=== PATIENT | male | born 1970 | race African-American/Black ===

== ENCOUNTER 2024-03-04 23:14 | Inpatient (IN) | payer BC, SELFPAY ==
[2024-03-04 21:14] VITALS: BP 190/110
[2024-03-04 21:28] LABS: % Basophils 0.9 % (0-2); % Eosinophils 4.5 % (0-6); % Immature Granulocytes 0.2 % (0-0.5); % Lymphocytes 29.4 % (20.5-51.1); % Monocytes 11.7 % (1.7-9.3); % Neutrophils 53.3 % (42.2-75.2); Absolute Basophils 0.1 10^3/uL (0-0.2); Absolute Eosinophils 0.3 10^3/uL (0-0.7); Absolute Lymphocytes 1.9 10^3/uL (1.2-3.4); Absolute Monocytes 0.8 10^3/uL (0.1-0.6); Absolute Neutrophils 3.4 10^3/uL (1.4-6.5); Hematocrit 39.5 % (39.0-52.0); Hemoglobin 13.7 g/dL (13.0-18.0); Mean Corp Hgb Conc. 34.7 g/dL (33.0-37.0); Mean Corpuscular Hgb 28.2 pg (27.0-31.0); Mean Corpuscular Volume 81.3 fL (80.0-94.0); Mean Platelet Volume 11.3 fL (7.4-10.4); Nucleated Red Blood Cells % 0 % (-); Platelet Count 198 10^3/uL (130-400); Red Blood Cell Count 4.86 10^6/uL (4.70-6.10); Red Cell Dist. Width 13.1 % (11.5-14.5); White Blood Cell Count 6.4 10^3/uL (4.8-10.8)
[2024-03-04 21:57] LABS: Troponin I 0.082 ng/ml
[2024-03-04 22:19] LABS: ALT (SGPT) 18 U/L (0-50); AST (SGOT) 27 U/L (17-59); Albumin 4.4 g/dl (3.5-5.0); Alkaline Phosphatase 81 U/L (38-126); Blood Urea Nitrogen 20 mg/dl (9-20); Calcium 9.6 mg/dl (8.4-10.2); Carbon Dioxide 27 mmol/L (22-30); Chloride 104 mmol/L (98-107); Glucose 102 mg/dl (70-99); Potassium 4.5 mmol/L (3.5-5.1); Sodium 138 mmol/L (135-145); Total Bilirubin 0.8 mg/dl (0.2-1.3); Total Protein 7.1 g/dl (6.3-8.2); eGFR > 60.00
--- NOTE | 2024-03-04 22:35 | ED.GENMED ---
History of Present Illness
General
Chief Complaint: Chest Pain
Source: patient and spouse
Exam Limitations: none
Time Seen by Provider: 03/04/24 22:02
Nursing documentation reviewed up to this point in time: agreed with
History of Present Illness
History of Present Illness:
Patient with history of hypertension on lisinopril and atenolol, presents to ED secondary to intermittent chest pain over the past 4 days. Chest pain described as pressure in the middle of chest, nonradiating, associated with shortness of breath.
Tonight, after dinner, patient experienced similar chest pain, but this time with radiating discomfort on the left side of his neck as well as the heaviness sensation in his left arm. At the time of exam in the ED, radiating discomfort in neck and
arm have resolved. However, patient is still experiencing 'little discomfort' in the chest. Denies previous similar symptoms. Denies recent travel or surgery. Denies back pain. Denies leg pain or swelling. Patient does not smoke, but does
drink alcohol occasionally. Denies family history of heart disease, although his parents does experience 'angina'.
Review of Systems
Review of Systems
Allergies reviewed?: Yes
All Other Systems: ROS reviewed and negative except as documented in HPI and ROS
Constitutional: Reports no symptoms
EENT: Reports no symptoms
Respiratory: Reports trouble breathing
Cardiac: Reports chest pain
ABD/GI: Reports no symptoms
: Reports no symptoms
Musculoskeletal: Reports no symptoms
Skin: Reports no symptoms
Neurological: Reports no symptoms
Phy Exam
Physical Exam
Physical Exam:
Physical Exam
General: no apparent distress, not acutely ill. afebrile
Head: nc/at. eomi
Neck: supple. no meningeal signs
Heart: s1/s2 regular rate and rhythm, no murmur. equal radial pulses.
Lungs: no acute respiratory distress. clear bilaterally
Abdomen: normal bowel sounds. not tender.
Neuro: alert and oriented. no focal neurological deficits
Skin: no rash
Psychiatric: well kept. interactive and cooperative
Extremities: no edema. no calf tenderness.
Scores
Heart Score for Chest Pain Patients
STEMI patient?: No
History: Moderately Suspicious
ECG: Normal
Age: >45 - <65 years
Risk Factors: 1 or 2 Risk Factors
Troponin: >1 - <3 x Normal Limit
Heart Score for Chest Pain Patients: 4
Heart Score Risk: 20.3% MACE over next 6 weeks
Course
Orders/Labs/Results
Orders:
Orders
03/04/24 Dinner
Cholesterol Lowering
At Your Request: Full Participation
Cholesterol Lowering: Sodium, 2 Gram
03/04/24 21:13
Electrocardiogram (*1) Urgent
Reason for Study: Chest Pain
Cardiac Monitoring- Treatment ONCE
EKG- Treatment ONCE
IV Insert/Care/Rem.- Treatment PRN
O2 Therapy [RESP] Urgent
Titrate/Wean O2 to maintain O2 sat greater than (%): 90
Special Instructions: Maintain sats >/=90%
Pulse Ox/spot Check [RESP] Urgent
Quantity: 1
Special Instructions: ON ROOM AIR
03/04/24 21:23
Complete Blood Count/With Diff Urgent
Comprehensive Metabolic Panel Urgent
Troponin I Urgent
03/04/24 22:29
Aspirin Chewable [Low Strength Aspirin] 324 mg PO NOW STA
Nitroglycerin Sublingual [Nitrostat (Sublingual)] 0.4 mg SL NOW STA
03/04/24 22:33
PTT Urgent
Comment: Obtain baseline before beginning heparin infusion if not already collected
03/04/24 22:34
Heparin 4,000 units IV NOW STA
Nursing to Place Non Medication Order As Directed
Physician Order: PTT 6 hours after initial start of Heparin infusion
Above order entered?: Yes
03/04/24 22:38
Heparin 44404 Units/250 ml 25,000 units in 250 ml .ROUTE .STK-MED
03/04/24 22:44
Urine Drug Abuse Screen Routine
03/04/24 22:45
Heparin 01511 Units/250 ml 25,000 units in 250 ml IV PER PROTOCOL
Weight to be used for heparin protocol in kilograms (kg):: 124.9
Protocol:: Cardiac Tx/Acute Coronary
PTT Goal Range to be used:: PTT 73 to 111 seconds
Order type:: Initial
INITIAL Infusion Dose (UNITS/KG/hr) & then follow protocol:: 12 units/kg/hr
Infusion Dose in UNITS/hr & then follow protocol (UNITS/hr):: 1,000
INFUSION RATE in mL/hr & then follow protocol (mL/hr):: 10
PTT less than or equal to 64 seconds:: Increase rate by 200 units/hr (+ 2 mL/hr)
PTT 64.1 to 72.9 seconds:: Increase rate by 100 units/hr (+ 1 mL/hr)
PTT 73 to 111 seconds:: Target Range. No change in rate.
PTT 111.1 to 130.9 seconds:: Decrease rate by 100 units/hr (- 1 mL/hr)
PTT 131 to 199.9 seconds:: HOLD for 1 hr. Then decrease rate by 200 units/hr (- 2 mL/hr)
PTT greater than or equal to 200 seconds:: HOLD for 2 hrs & Notify Provider. Then decrease by 200 units/hr (-
2 mL/hr)
Lab follow-up:: Each change, PTT q6h until 2 consecutive are therapeutic. Then PTT
daily.
03/04/24 22:57
Acetaminophen [Tylenol] 1,000 mg PO NOW STA
03/04/24 23:04
Admit/Transfer Patient As Directed
Co-Sign Provider:
Level of Care: Inpatient admission
Assign to:: IVU
Physician / Group: maura pandey
Diagnosis: Nstemi, htn emergency
Reason for Hospitalization: Nstemi, htn emergency
Expected length of stay greater than two midnights?: Yes
ELOS- Estimated Length of Stay in days: 4
I certify the patient meets the requirements for IP care: Yes
03/04/24 23:05
Code Status As Directed
Resuscitation Status: Full Code
03/04/24 23:07
PRN Pain Medication Management As Directed
May give lesser potent ordered pain med per pt: Yes
preference::
Protocol:: Medication orders for pain may be administered in a
manner that supports deferring to patient preference
when the pt is:
- Requesting an ordered lesser potent pain medication.
Least to most potent pain medications are defined
as: acetaminophen < NSAID < tramadol < opioids
(morphine, oxycodone, hydromorphone).
- Requesting a lesser dose of the same medication IF
ORDERED.
- Requesting a less intrusive route of administration
if both routes are prescribed by the provider (PO <
IV).
03/04/24 23:57
CARDIOLOGY CONSULT Routine
Consulting Provider: Silvia Prescott
Was physician already notified: Yes
Reason for consult: nstemi
VTE Contraindication Routine
VTE Mechanical Device Contraindication: Medical Contraindication
Pharmocologic Contraindication: Medical Contraindication
Comment: pt on iv heparin
Heparin Protocol- PTT Orders As Directed
PTT per Heparin protocol: -Obtain CBC and baseline PTT - if not already collected.
-Obtain PTT 6 hours from start of infusion. Then, every 6 hours until 2 consecutive
PTT's are therapeutic. Then, PTT Daily.
-With each rate change, obtain PTT every 6 hours until 2 consecutive PTT's are
therapeutic. Then, PTT Daily.
Activity As Directed
Activity Level: As Tolerated
Intake/ Output As Directed
Frequency: Per unit guidelines
Notify MD As Directed
Notify physician if: PTT is greater than or equal to 200.
Vital Signs As Directed
Frequency: Per unit guidelines
Ot Eval And Treat Routine
Pt Eval And Treat Routine
Activity Level: As Tolerated
03/05/24 03:00
EKG [Electrocardiogram (*1)] Urgent
Reason for Study: Chest Pain
03/05/24 03:48
Cardiovascular Evaluation IN AM
Complete Blood Count/With Diff IN AM
Comprehensive Metabolic Panel IN AM
PTT Urgent
Troponin I Q6H
03/05/24 05:00
Acetaminophen [Tylenol] 650 mg PO Q6HPRN PRN
03/05/24 06:00
Echo 2D MMode Color/Doppler IN AM
Reason for Study: cp
NPO
Allow oral meds: Yes
Allow clear liquids: No
NPO with Ice Chips: No
03/05/24 09:00
Troponin I Q6H
03/05/24 22:00
Psyllium [Metamucil, Konsyl] 1 packet PO HS
Valsartan [Diovan] 320 mg PO HS
03/06/24 06:00
Complete Blood Count/No Diff Q2D
Comment: notify provider: Platelet count < 130,000 or decrease by 50% from baseline
Complete Blood Count/With Diff IN AM
Comprehensive Metabolic Panel IN AM
03/07/24 06:00
Complete Blood Count/With Diff IN AM
Comprehensive Metabolic Panel IN AM
03/08/24 06:00
Complete Blood Count/No Diff Q2D
Comment: notify provider: Platelet count < 130,000 or decrease by 50% from baseline
03/10/24 06:00
Complete Blood Count/No Diff Q2D
Comment: notify provider: Platelet count < 130,000 or decrease by 50% from baseline
03/12/24 06:00
Complete Blood Count/No Diff Q2D
Comment: notify provider: Platelet count < 130,000 or decrease by 50% from baseline
03/14/24 06:00
Complete Blood Count/No Diff Q2D
Comment: notify provider: Platelet count < 130,000 or decrease by 50% from baseline
03/16/24 06:00
Complete Blood Count/No Diff Q2D
Comment: notify provider: Platelet count < 130,000 or decrease by 50% from baseline
03/18/24 06:00
Complete Blood Count/No Diff Q2D
Comment: notify provider: Platelet count < 130,000 or decrease by 50% from baseline
03/20/24 06:00
Complete Blood Count/No Diff Q2D
Comment: notify provider: Platelet count < 130,000 or decrease by 50% from baseline
Abnormal Lab Results
03/04/24
21:23
MPV 11.3 H fL
(7.4-10.4)
Absolute Monos (auto) 0.8 H 10^3/uL
(0.1-0.6)
Monocytes % 11.7 H %
(1.7-9.3)
Glucose 102 H mg/dl
(70-99)
Troponin I 0.082 H* ng/ml
03/04/24 21:23
03/04/24 21:23
Vital Signs
Initial and Last Documented VS:
Initial Vital Signs
Temp Pulse Resp BP Pulse Ox
98.3 F 52 18 190/110 100
03/04/24 21:14 03/04/24 21:14 03/04/24 21:14 03/04/24 21:14 03/04/24 21:14
Last Documented Vital Signs
Temp Pulse Resp BP Pulse Ox
97.7 F 46 16 161/100 97
03/05/24 03:39 03/05/24 04:00 03/05/24 03:39 03/05/24 03:40 03/05/24 03:39
MDM/Problems Addressed
MDM/Problems Addressed:
History and exam along with initial troponin concerning for acute coronary syndrome.
Discussed with on-call modeling agent, Dr. Prescott. Recommends admission to hospitalist service, with patient to be kept n.p.o. for potential cardiac catheterization in a.m. Patient will be started on aspirin, nitroglycerin, and heparin protocol.
*EKG
Interpreted by ED Provider?: Yes
EKG Intrepretation Date: 03/04/24
Heart Rate: 49
Rate: bradycardiac
Rhythm: sinus
[place]: normal axis
*Critical Care Note
Total Time (30-74mins, 75-104mins- exclusive of procedures): Not Applicable
ED Attending Note
-
Portions of this chart may have been created with voice recognition software.� Occasional wrong word or��sound alike� substitutions may have occurred due to the inherent limitations of voice recognition software.
Discharge Plan
Departure
Patient Disposition: Admit
Date of Disposition: 03/04/24
Time of Disposition: 22:39
Admit to: Telemetry
Presentation/result/management discussed w/ accepting MD/DO: Hospitalist
Discharge Problem:
Non-ST elevation [place] (NSTEMI)
Interventions
Interventions:
*Risk Screen - Suicide Last Done: 03/04/24 21:43
*General Assessment Last Done: 03/04/24 21:14
*Neglect/Abuse Screening Last Done: 03/04/24 21:14
ED- Fall Risk Assessment Last Done: 03/04/24 21:14
*ED COVID-19 Vaccine History Last Done: 03/04/24 21:14
*Nursing Disposition Last Done: 03/04/24 23:49
ED- Cardiac Assessment Last Done: 03/04/24 23:08
Discharge Date and Time
Discharge Date/Time: 03/04/24 23:50
[2024-03-04] MEDS: HEPARIN 4000 UNITS IV (22:43)
--- NOTE | 2024-03-04 22:43 | HPS.HSE ---
Addendum entered and electronically signed by Lalit Yeung DO 03/05/24 00:04:
Patient seen and examined independently. Agree with findings and plan as set forth by TINO Perrin.
Patient is a 53y M with PMH significant for hypertension who presents to ED complaining of chest pain. Patient states that he started with chest discomfort on evening into Sunday. Patient states that symptoms have been intermittent
since that time. He describes a pressure as if something were stuck in his lower chest. No associated symptoms of dyspnea, nausea, diaphoresis, etc. Today he noted some numbness / tingling in the L arm which prompted him to present to the ED for
further evaluation.
BP initially noted to be quite elevated and patient reports history of similar presentation several years ago. He was found to be markedly hypertensive at that time as he had been off of his BP meds for about 6 months.
Patient states that he stopped his Procardia about 2 months ago due to swelling in the ankles. he has remained compliant with his valsartan.
Ass:
Hypertensive Emergency
Chest Pain / NSTEMI
Bradycardia
Plan:
Admit for further evaluation and treatment.
IV heparin protocol.
BP improved s/p nitroglycerin in the ED.
Would begin IV NTG gtt if chest discomfort returns or BP increases.
Cardiology evaluation in the AM.
+/- ischemic evaluation.
Continue to follow serial troponin.
Original Note:
Family Physician
-
Family Physician:
Chief Complaint
-
Chest pain
History of Present Illness
53-year-old male complaining of chest pressure midsternal over the past 4 days. He was seen at urgent care earlier today due to having chest pain with some shortness of breath radiating to his left arm. He was referred to the ER for evaluation.
He complains of chest pain currently is 08/15. In the ER he was noted to have elevated troponin along with hypertension. He denies headache with blood pressure of 187/108 although did get a headache post nitroglycerin sublingual at bedside. He
recently stopped nifedipine in addition to his current drug regimen due to swelling in his legs. He reports he only drinks decaffeinated coffee he denies any antihistamines, Afrin, cocaine, fever, chills, sore throat, cough, abdominal pain, nausea,
vomiting, diarrhea, urinary symptoms. He has past medical history of hypertension, peripheral edema
Medical History
Past Medical History
Past Medical History: Reports Other
Additional Past Medical History:
Hypertension
Peripheral edema
Past Surgical History: Reports None
Social History
Tobacco: Non-smoker
Alcohol: Occasional (1 neck drink approximately 2 weeks)
Drug: None
Personal:
Living: With Family
Employment: Employed
Family History
Family History: Other (Father hypertension, DM 2 mother unknown)
Allergies / Home Medications
Allergies reflects when Allergies were last updated in [facility].
Home Medications with original date entered in [facility]
Allergy/Medication List:
Allergies
Allergy/AdvReac Type Severity Reaction Status Date / Time
No Known Allergies Allergy Unverified 03/04/24 21:12
Home Medications
Fiber Laxative 1 dose PO HS 03/04/24
atenolol 50 mg tablet 50 mg PO HS 03/04/24
valsartan 320 mg tablet 320 mg PO HS 03/04/24
Review of Systems
-
History Source: Patient and Family ( at bedside)
A 12 point ROS was completed and negative except as noted: Yes
Constitutional: Denies Fever or Chills
EENT: Denies Sore Throat or Runny Nose
Respiratory: Denies Cough or Trouble Breathing
Cardiac: Reports Chest Pain (Midsternal to left arm); Denies Diaphoresis, Palpitations or Syncope
Abdomen/GI: Denies Abdominal Pain, Nausea, Vomiting, Diarrhea, Constipated, Bloody Stools or Black Stools
: Denies Dysuria, Frequency, Flank Pain, Incontinence, Difficulty Voiding or Urgency
Musculoskeletal: Reports Edema (Trace peripheral bilateral); Denies Joint Pain
Skin: Reports Other (Brown pigmentation to bilateral lower legs); Denies Itching or Rash
Neurological: Denies Dizzy or Headache
Endocrine: Reports No Symptoms
Hematologic/Lymphatic: Reports No Symptoms
Psych: Reports Calm
Physical Exam
Vital Signs
Vital Signs
Temp Pulse Resp BP Pulse Ox
98.3 F 49 15 190/110 98
03/04/24 21:14 03/04/24 22:30 03/04/24 22:30 03/04/24 21:14 03/04/24 22:32
Physical Exam
General: Comfortable and Conversant; No Fever or Chills
HEENT: NormoCephalic, Anicteric, Moist mucous membranes, PERRLA, [place] Conjunctivae and No Ptosis
Respiratory: Clear; No Wheezes, Rales or Rhonchi
Cardiac: S1/S2, Bradycardia (HR 45) and Peripheral Edema (Trace peripheral bilateral); No Murmur, Rub or Gallop
Breast: Deferred by me
GI: Soft, Non Tender, Non Distended, Normal Bowel Sounds and No Hepatosplenomegaly
Rectal: Deferred by Provider
Genito-urinary: Deferred by me
Musculoskeletal: Edema, Left Lower Extremity (Trace peripheral bilateral), Edema, Right Lower Extremity (Trace peripheral bilateral) and Other (Brown pigmentation bilateral lower legs )
Skin: Warm and Dry; No Rash or Jaundice
Neuro: AO x 3, No Motor Deficits, Nonfocal/grossly intact, Cranial Nerves Intact and No Sensory Deficits; No Slurred Speech, Facial Droop or Tremors
Psych: Calm
Laboratory Results
-
03/04/24 21:23
03/04/24 21:23
Laboratory Results
Total Bilirubin 0.8 mg/dl (0.2-1.3) 03/04/24 21:23
AST 27 U/L (17-59) 03/04/24 21:23
ALT 18 U/L (0-50) 03/04/24 21:23
Alkaline Phosphatase 81 U/L (38-126) 03/04/24 21:23
Troponin I 0.082 ng/ml H* 03/04/24 21:23
Data Reviewed
-
Lab Data: Labs Reviewed by me
Impression/Plan
-
Impression/plan:
Admit to IVU
#NSTEMI
Troponin 0.082, will trend
-N.p.o. after midnight for cath in a.m.
-Consult cardiology
-Aspirin 324 mg now will give 81 mg IM
-IV heparin drip
-Check UDS
-Nitro sublingual given in the ER with CP relief
#Hypertensive emergency/ hx htn emergency per
BP 190/110 >165/98 post nitro sl
-Patient took valsartan 320 mg at bedtime at 8:30 PM 03/04/2024 and a Tylenol 50 mg at bedtime
- cont valsartan 320 mg hs
Will give nitroglycerin sublingual-patient did experience headache post nitro
-Tylenol given in ER for headache
#Bradycardia
HR 45
-Patient took atenolol 50 mg at 8:30 PM
-Monitor consider lower dosage of atenolol given bradycardia
#constipation hx
cont fiber laxative or equivalent
DVT prophylaxis
IV heparin drip
Full code
[2024-03-04] MEDS: HEPARIN 25000 UNITS/250 ML IV (22:44)
[2024-03-04] MEDS: LOW STRENGTH ASPIRIN 324 MG PO (22:46)
[2024-03-04] MEDS: NITROSTAT (SUBLINGUAL) 0.4 MG SL (22:46)
[2024-03-04 22:53] LABS: APTT 29.9 Sec (23.4-35.0)
[2024-03-04 22:54] VITALS: BP 187/108
[2024-03-04] MEDS: TYLENOL 1000 MG PO (23:03)
[2024-03-04 23:11] VITALS: BP 165/98
[2024-03-05] VITALS (15 sets, daily range): BP systolic 161–210; BP diastolic 93–116; BMI 33.3
[2024-03-05 04:03] LABS: % Basophils 0.6 % (0-2); % Eosinophils 4.5 % (0-6); % Immature Granulocytes 0.2 % (0-0.5); % Lymphocytes 35.7 % (20.5-51.1); Absolute Eosinophils 0.2 10^3/uL (0-0.7); Absolute Lymphocytes 1.9 10^3/uL (1.2-3.4); Absolute Monocytes 0.4 10^3/uL (0.1-0.6); Absolute Neutrophils 2.7 10^3/uL (1.4-6.5); Hematocrit 41.8 % (39.0-52.0); Hemoglobin 13.9 g/dL (13.0-18.0); Mean Corp Hgb Conc. 33.3 g/dL (33.0-37.0); Mean Corpuscular Hgb 28.1 pg (27.0-31.0); Mean Corpuscular Volume 84.4 fL (80.0-94.0); Mean Platelet Volume 11.8 fL (7.4-10.4); Nucleated Red Blood Cells % 0 % (-); Platelet Count 174 10^3/uL (130-400); Red Blood Cell Count 4.95 10^6/uL (4.70-6.10); Red Cell Dist. Width 12.9 % (11.5-14.5); White Blood Cell Count 5.4 10^3/uL (4.8-10.8)
[2024-03-05 04:11] LABS: APTT 32.2 Sec (23.4-35.0)
[2024-03-05 04:26] LABS: ALT (SGPT) 19 U/L (0-50); AST (SGOT) 24 U/L (17-59); Albumin 4.2 g/dl (3.5-5.0); Alkaline Phosphatase 88 U/L (38-126); Blood Urea Nitrogen 17 mg/dl (9-20); Calcium 9.3 mg/dl (8.4-10.2); Carbon Dioxide 26 mmol/L (22-30); Chloride 106 mmol/L (98-107); Glucose 99 mg/dl (70-99); HDL Cholesterol 39 mg/dl; LDL Cholesterol, Calculated 103 mg/dl; Sodium 138 mmol/L (135-145); Total Bilirubin 0.9 mg/dl (0.2-1.3); Total Cholesterol 195 mg/dl (50-199); Total Protein 6.9 g/dl (6.3-8.2); Triglyceride 268 mg/dl (10-149); Very Low Density Lipoprotein 53 mg/dl (0-30); eGFR > 60.00
[2024-03-05 04:36] LABS: Troponin I 0.322 ng/ml
[2024-03-05 07:17] LABS: Amphetamines Negative (Negative); Barbiturates Negative (Negative); Benzodiazepines Negative (Negative); Buprenorphine Negative (Negative); Cocaine Negative (Negative); Marijuana Negative (Negative); Methadone Negative (Negative); Methamphetamines Negative (Negative); Opiates Negative (Negative); Phencyclidine Negative (Negative); Tricyclic Antidepressants Negative (Negative)
--- NOTE | 2024-03-05 08:53 | CON.CAR ---
Addendum entered and electronically signed by Geronimo Gray DO 03/05/24 16:18:
Attestation: I have seen and examined the patient. I can confirm Ms. Givens findings and I agree with her assessment and plan as documented.
53-year-old gentleman with multiple coronary artery disease risk factors including hypertension presenting with typical angina beginning several days ago. Initial troponin is positive and trending up. He is currently chest pain-free after
initiation of heparin.
Exam is benign.
Impression:
Acute coronary syndrome
Hypertension
Plan:
Plan for urgent cardiac catheterization for non-ST elevation myocardial infarction.
Risks and benefits explained to patient. Consent is signed and on the chart.
Further instructions to follow.
Original Note:
Consultation
Consultation Request
Date/Time Consultation Requested: 03/04/24 5300
Date/Time Consultation Performed: 03/05/24 08
Requesting Provider: Hoa Braun NP
Performing Provider: Marisol JIMÉNEZ for Dr. Gray
Reason for Consultation: ACS
Medical History
-
Chief Complaint: chest discomfort
History of Present Illness:
53 y/o male with hypertension who is here for evaluation of intermittent chest discomfort since . Last night, he had it after dinner at rest and went down his left arm. In the ER, he was given nitro, which helped the discomfort. He was given
full dose aspirin and started on a heparin drip. He is CP free at the time of my assessment.
Past Medical History
Past Medical History: HTN
Social History
Tobacco: Non-Smoker
Alcohol: Occasional
Personal:
Living: With Family
Family History
Family History: Diabetes (dad), Hypertension (dad ) and Other (thinks grandfather had PR, but lived to be 86)
Allergies / Home Medications
Allergy/AdvReac Type Severity Reaction Status Date / Time
No Known Allergies Allergy Unverified 03/04/24 21:12
�Medication �Instructions �Recorded �Confirmed �Type
Fiber Laxative 1 dose PO HS Constipation 03/04/24 03/04/24 History
atenolol 50 mg tablet 50 mg PO HS Blood Pressure 03/04/24 03/04/24 History
valsartan 320 mg tablet 320 mg PO HS Blood Pressure 03/04/24 03/04/24 History
Review of Systems
-
History Source: Patient
All other systems: Negative unless noted
Cardiac: Chest Pain
Physical Exam
Vital Signs
Temp Pulse Resp BP Pulse Ox
98.2 F 49 16 167/103 98
03/05/24 07:30 03/05/24 07:30 03/05/24 07:30 03/05/24 07:24 03/05/24 07:59
Lab Results
03/05/24 03:48
03/05/24 03:48
Troponin I 0.322 ng/ml H* D 03/05/24 03:48
Physical Exam
General: Well Developed, Well Nourished and No Apparent Distress
HEENT: Normocephalic and Anicteric
Respiratory: Clear and Non Labored Respirations
Cardiac: Regular Rhythm (SB)
Musculoskeletal: Edema (trace BLE edema)
Skin: Warm and Dry
Neuro: AO x 3
Psych: Calm
Impression / Plan
-
NSTEMI:
-trop 0.322- trend to peak
-received full dose ASA, continue ASA 81 mg PO daily
-initiate statin. Continue BB, but adjust to coreg.
-on heparin gtt- to continue, which requires intensive monitoring
-this diagnosis is threat to life; however, patient hemodynamically stable and CP free at the time of my assessment
-plan for cardiac catheterization today
Bradycardia:
-chronic, runs in 50's normally per patient
-monitor tele with adjustment in BB as above
HTN:
-elevated
-continue ARB, adjust BB to Coreg. Can add another agent if needed such as HCTZ. Of note, nifedipine made his legs swell, so will avoid CCB.
Dyslipidemia:
-LDL 103, triglycerides 268
-statin initiated
Data Reviewed
-
EKG: Tracing Personally Visualized and interpreted (SR with minimal voltage criteria for LVH)
Medical Tests (Nuc Med, Echo etc): Other (echo ordered)
Labs: Labs Reviewed by me
[2024-03-05] MEDS: COREG 6.25 MG PO ×2 (08:55→20:30)
[2024-03-05] MEDS: LOW STRENGTH ASPIRIN 81 MG PO (08:55)
--- NOTE | 2024-03-05 10:38 | W.PN.HOSP.TC ---
Today's Communication/Plan
-
see outlined plan
Assessment / Plan
Assessment / Plan
Assessment:
NSTEMI (Diagnosis is threat to life)
- trend trops to peak
- continue ASA/Statin/BB
- continue heparin drip; requires intensive monitoring of PTT levels
- cardiac cath today
Chronic sinus bradycardia
- monitor tele
Hx of Essential HTN with urgency
- continue ARB/BB
- previously CCB caused swelling
HLD - statin
Hx of constipation
- laxatives prn
DVT ppx: IV Heparin
Code: Full
Anticipated Discharge: > 48 hours
Subjective/Interval History
-
Date of Service: March 05, 2024
no chest pain
for cath today
Objective Data
-
Labs:
Laboratory Results
03/04/24 03/05/24 03/05/24
22:33 03:48 10:30
WBC 5.4
Hgb 13.9
Hct 41.8
Plt Count 174
APTT 29.9 32.2 Pending
Sodium 138
Potassium 4.0
Chloride 106
Carbon Dioxide 26
BUN 17
Creatinine 0.8
Glucose 99
Calcium 9.3
Total Bilirubin 0.9
AST 24
ALT 19
Alkaline Phosphatase 88
Vital Signs:
Vital Signs
Temp Pulse Resp BP Pulse Ox
98.2 F 49 16 167/103 98
03/05/24 07:30 03/05/24 07:30 03/05/24 07:30 03/05/24 07:24 03/05/24 07:59
Physical Exam
-
General: No Apparent Distress
HEENT: Normocephalic and Atraumatic
Respiratory: Clear to Auscultation; Negative Wheezes or Rales
Cardiac: Regular Rhythm and S1/S2
GI: Soft and Nontender
Genito-urinary: No Costovertebral Tender
Neuro: AO x 3
Hematologic / Lymphatic: No Lymphadenopathy
Psych: Calm
Data Reviewed
-
Total Time Spent with Patient (in minutes): 52
Labs: Labs Reviewed by me
[2024-03-05 11:09] LABS: APTT 41.4 Sec (23.4-35.0)
--- NOTE | 2024-03-05 12:09 | CM ---
Chart reviewed. Patient is independent of ADLS, lives with his in a [address], [address], 0 DME. Patient is waiting for a cardiac cath. Plan is for the patient to return home. CM to follow
[2024-03-05 13:39] LABS: ACT-LR - POC 393 Seconds (116-155)
--- NOTE | 2024-03-05 14:11 | CM ---
Pricing on Brilinta is $50 a month through the patient's [facility], ID# [id number]. The patient qualifies for the $5 co pay card. I will place it in the red discharge folder
[2024-03-05] MEDS: NSS 1000 IV (14:29)
--- NOTE | 2024-03-05 15:58 | ITS.CL.ANGIO ---
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
Angioplasty
Procedure Report:
CARDIAC CATHETERIZATION REPORT
Date of Procedure: 03/05/2024
Referring: Palak Prescott M.D.
INDICATION: Non-ST elevation myocardial infarction.
PROCEDURE:
1. Left heart catheterization.
2. Coronary angiography.
3. Successful PCI of the large first diagonal
ACCESS:
6 [place] right radial artery.
6 [place] right common femoral artery using a modified Seldinger technique with a micropuncture kit under ultrasound guidance.
CATHETERS:
1. 5 [place] JR4.
2. 5 [place]ese JL 3.5.
3. 6 [place] EBU 4.0 guiding catheter.
HEMODYNAMIC DATA
Weight (kg): 120.7
AO (s/d/x, mmHg): 171/102/130
LV (s/x mmHg): 176/19 (A wave to 35)
LEFT VENTRICULOGRAPHY: Not performed.
CORONARY ANGIOGRAPHY
Dominance: Right.
Left Main: Short, normal diameter vessel. There is no coronary artery disease.
LAD: Large size vessel giving rise to 2 large diagonals. The first diagonal is acutely occluded in its proximal margin. There is late, retrograde filling from the second diagonal.
Ramus: Congenitally absent.
Circumflex: Relatively small AV groove vessel giving rise to several small obtuse marginals.
RCA: Large size, dominant vessel with a large posterolateral arcade. There is no coronary artery disease.
INTERVENTION(S)
1. Successful PCI of the 100% proximal D1 occlusion (Medtronic Caden [place] 3.0 x 30 TJ, postdilated with a 3.0 NC balloon) with reduction in stenosis to 0%, restoring SILVER-3 flow.
Narrative:
The decision was made to proceed with percutaneous coronary intervention. The diagnostic catheter was removed over a wire and a 6Fr EBU 4.0 guiding catheter was advanced to the aortic root and seated in the left main coronary artery. Additional
heparin was given and a Power Turn Flex wire was advanced distal first diagonal. The proximal D1 100% lesion was predilated with a 2.0 x 12 semi-compliant balloon to 12 jacki. The semi-compliant balloon was removed and a Medtronic [place] 3.0 x
30 drug-eluting stent was advanced. The stent was deployed at 12 atmospheres. The stent balloon was removed. A 3.0 x 20 noncompliant balloon was advanced into the stent and the stent was postdilated to 14 atmospheres. Angiography was performed in
orthogonal views, confirming good stent expansion and an excellent angiographic result. The coronary wire was withdrawn and the guide was disengaged from the artery. The catheter was removed over a standard J-wire.
Closure Device: Vascular band.
Radiation (mGy): 1225.31
DAP (cm2.Gy): 103.85
Fluoroscopy time (minutes): 9.5
Sedation time (minutes): 60
CONCLUSIONS
1. Right dominant circulation with a large posterolateral arcade and an acute occlusion of the large first diagonal, status post successful PCI (Medtronic Caden [place] 3.0 x 30 TJ, postdilated with a 3.0 NC balloon) with reduction in stenosis to
0%, restoring SILVER-3 flow.
2. Moderately elevated filling pressures (LVEDP = 19 mmHg at 120.7 kg) with evidence of significant diastolic dysfunction (A wave to 35 mmHg).
3. Severely tortuous right innominate artery requiring femoral access.
RECOMMENDATIONS:
1. Expectant management after cardiac catheterization via right radial and right common femoral approach.
2. Limited weight bearing on the right wrist for one week.
3. Dual antiplatelet therapy with aspirin and ticagrelor for at least 12 months, followed by aspirin indefinitely.
4. Start diuresis tomorrow given elevated filling pressures and diastolic dysfunction.
5. Guideline directed medical therapy as hemodynamics will tolerate.
6. Aggressive secondary prevention with high-dose, high potency statin. Goal LDL <55.
7. Referral to cardiac rehab.
Copy to: Palak Prescott M.D., Phoebe Riggins M.D.
Geronimo Gray DO, FACC, FACP
[2024-03-05] MEDS: TYLENOL 650 MG PO (17:04)
[2024-03-05] MEDS: LIPITOR 40 MG PO (17:05)
[2024-03-05] MEDS: APRESOLINE 5 MG IV (17:05)
[2024-03-05] MEDS: ALDACTONE 25 MG PO (17:05)
[2024-03-05 17:28] LABS: Troponin I 0.826 ng/ml
--- NOTE | 2024-03-05 17:49 | PTCARENOTE ---
Pt had cardiac cath via right radial artery and right femoral artery. Radial band removed eventually after some initial oozing, right femoral site with dry and intact dressing. No bleeding or hematoma at either site. Pt with elevated BP's post
procedure, Marisol Pope NP notified, aldactone and hydralazine IV added. Pt also disappointed at having to stay in the hospital. telemetry shows sinus merari. Troponin level still trending up slightly. Pt given information about his new medications
and health issues.
[2024-03-05] MEDS: BRILINTA 90 MG PO (20:30)
[2024-03-05] MEDS: DIOVAN 320 MG PO (20:31)
[2024-03-05] MEDS: METAMUCIL, KONSYL 1 PACKET PO (20:31)
[2024-03-06] VITALS (11 sets, daily range): BP systolic 132–192; BP diastolic 90–111; BMI 33.0
[2024-03-06 04:23] LABS: % Basophils 0.6 % (0-2); % Eosinophils 2.2 % (0-6); % Immature Granulocytes 0.3 % (0-0.5); % Lymphocytes 21.4 % (20.5-51.1); % Monocytes 9.7 % (1.7-9.3); % Neutrophils 65.8 % (42.2-75.2); Absolute Eosinophils 0.2 10^3/uL (0-0.7); Absolute Lymphocytes 1.6 10^3/uL (1.2-3.4); Absolute Monocytes 0.7 10^3/uL (0.1-0.6); Absolute Neutrophils 4.8 10^3/uL (1.4-6.5); Hematocrit 40.8 % (39.0-52.0); Hemoglobin 13.9 g/dL (13.0-18.0); Mean Corp Hgb Conc. 34.1 g/dL (33.0-37.0); Mean Corpuscular Hgb 27.6 pg (27.0-31.0); Mean Corpuscular Volume 81.1 fL (80.0-94.0); Mean Platelet Volume 11.4 fL (7.4-10.4); Nucleated Red Blood Cells % 0 % (-); Platelet Count 184 10^3/uL (130-400); Red Blood Cell Count 5.03 10^6/uL (4.70-6.10); Red Cell Dist. Width 13.2 % (11.5-14.5); White Blood Cell Count 7.3 10^3/uL (4.8-10.8)
[2024-03-06 05:19] LABS: ALT (SGPT) 17 U/L (0-50); AST (SGOT) 24 U/L (17-59); Albumin 4.1 g/dl (3.5-5.0); Alkaline Phosphatase 92 U/L (38-126); Blood Urea Nitrogen 15 mg/dl (9-20); Calcium 9.2 mg/dl (8.4-10.2); Carbon Dioxide 24 mmol/L (22-30); Chloride 107 mmol/L (98-107); Estimated Creatinine Clearance > 125 ml/min; Glucose 100 mg/dl (70-99); Potassium 4.1 mmol/L (3.5-5.1); Sodium 138 mmol/L (135-145); Total Bilirubin 1.1 mg/dl (0.2-1.3); Total Protein 6.9 g/dl (6.3-8.2); eGFR > 60.00
--- NOTE | 2024-03-06 06:03 | PTCARENOTE ---
Assumed care of patient at change of shift. NSR/sinus merari on monitor with HR 50s-70s. Denies chest pain. Right groin cath site dressing dry/intact with no complications noted. Right radial dressing dry intact with ecchymosis. Edema noted in
right hand that was soft and nontender. Radial pulse palpable and cap refill <2sec. PA at bedside to assess patient. KUMAR wrap applied and arm elevated on pillow which relieved swelling. Patient ambulating independently in room without
difficulty. Education provided on activity restrictions and reporting any changes to staff. Call hernandez within reach.
[2024-03-06] MEDS: BRILINTA 90 MG PO (08:16)
[2024-03-06] MEDS: APRESOLINE 5 MG IV (08:16)
[2024-03-06] MEDS: LOW STRENGTH ASPIRIN 81 MG PO (08:16)
[2024-03-06] MEDS: ALDACTONE 25 MG PO (08:16)
[2024-03-06] MEDS: COREG 6.25 MG PO ×2 (08:16→12:04)
--- NOTE | 2024-03-06 08:50 | W.PN.CD ---
Addendum entered and electronically signed by Geronimo Gray DO 03/06/24 15:32:
The patient is doing well and will likely be discharged today.
The patient should not return to work until at least 03/10/2024.
The patient should avoid any sort of heavy lifting. 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
He may engage is routine activities of daily living, but I asked him to hold off on any vigorous exercise until he has started cardiac rehab.
Original Note:
Today's Communication / Plan
-
Increase carvedilol to 12.5 mg BID.
Monitor BP/HR.
Discharge planning.
Impression / Plan
-
Impression/Plan: 53 y/o male with HTN admitted with NSTEMI.
#NSTEMI
-Acute.
-Troponin peaked at 0.826.
-S/P PCI to a large, acutely occluded D1 (Medtronic [place] 3.0 x 30 TJ, post dilated with a 3.0 NCB) with reduction in stenosis to 0%, restoring SILVER III flow.
-DAPT with aspirin + ticagrelor for at least 12 months, followed by aspirin indefinitely.
-Echo shows normal LV function, no regional wall motion abnormalities. LVEF 65-70%.
-Continue carvedilol.
-Atorvastatin started. Goal LDL < 55.
#Bradycardia
-Chronic, stabe. HR typically in the 50's per patient.
-Monitor tele with adjustment in BB as above.
#HTN
-Chronic, elevated.
-Intolerant of CCB.
-Continue valsartan, spironolactone. Monitor Cr/K+.
-Increase carvedilol to 12.5 mg BID.
-Hydralazine 5 mg IV PRN.
#Dyslipidemia
-New diagnosis.
-Total cholesterol = 195, LDL = 103, HDL = 39, Triglycerides = 268.
-Atorvastatin 40 mg daily started.
-Goal LDL < 55.
-Repeat lipid panel in 3 months.
#PPx
-SCD's for DVT/VTE.
-No role for PPI.
#Dispo
-IVU status.
-Full code.
-Discharge planning (late today vs. tomorrow).
Subjective/Interval History:
Weight is down 0.9 kg.
Patient is consistently hypertensive (160's - 189 mmHg).
Atenolol changed to carvedilol.
Spironolactone 25 mg started.
Hydralazine 5 mg IV given x2.
Troponin peaked at 0.826.
DATA:
TTE, 03/05/2024:
CONCLUSIONS
LV ejection fraction is 65-70%. No regional wall motion abnormalities are seen.
Normal right ventricular size and function.
Trileaflet aortic valve with partial fusion of the right and left coronary
cusps (raphe). Grossly normal leaflet excursion. No aortic stenosis. No
aortic regurgitation is seen.
The aortic arch is 4.3 cm.
No prior study available for comparison.
Cardiac Catheterization/PCI, 03/05/2024:
CONCLUSIONS
1. Right dominant circulation with a large posterolateral arcade and an acute occlusion of the large first diagonal, status post successful PCI (Medtronic Caden [place] 3.0 x 30 TJ, postdilated with a 3.0 NC balloon) with reduction in stenosis to
0%, restoring SILVER-3 flow.
2. Moderately elevated filling pressures (LVEDP = 19 mmHg at 120.7 kg) with evidence of significant diastolic dysfunction (A wave to 35 mmHg).
3. Severely tortuous right innominate artery requiring femoral access.
Physical Exam
Vital Signs/Labs
Vital Signs
Temp Pulse Resp BP Pulse Ox
36.5 C 54 20 172/111 99
03/06/24 07:53 03/06/24 08:00 03/06/24 07:53 03/06/24 08:16 03/06/24 08:14
03/04/24 03/05/24 03/06/24
11:59 11:59 11:59
Actual Weight 120.7 kg 119.8 kg
03/06/24 03:41
03/06/24 03:41
APTT Cancelled 03/05/24 17:30
Triglycerides 268 mg/dl (10-149) H 03/05/24 03:48
LDL Cholesterol, Calc 103 mg/dl 03/05/24 03:48
VLDL Cholesterol, Calc 53 mg/dl (0-30) H 03/05/24 03:48
HDL Cholesterol 39 mg/dl 03/05/24 03:48
LAB Results
03/04/24 03/05/24 03/05/24
21:23 03:48 10:41
Troponin I 0.082 H* 0.322 H* D 0.460 H* D
03/05/24 03/06/24
16:44 03:41
Troponin I 0.826 H* D 0.410 H*
Physical Exam
Constitutional: No acute distress and Comfortable
EENT: Anicteric and Moist mucous membranes
Cardiovascular: Rhythm & rate is regular, Pedal edema is absent, JVD pressure is normal, S1S2 is normal and Murmur/rub/gallop absent
Respiratory: Respiratory effort normal, Lungs clear to auscul., Wheeze Absent and Crackles Absent
GI: Soft, Distention absent, Flat, Non tender and Normal bowel sounds
Neuro/Psych: AO x 3
Other: Cath Site (Right radial, right femoral access sites are C/D/I.)
Data Reviewed
-
Date of Service: March 06, 2024
Medical Decision Making: Reviewed Test Results, Independent Historian Assessment and Test Interpretation
EKG: Tracing Personally Visualized and interpreted and Report Reviewed by me
Echo: Tracing Personally Visualized and interpreted and Report Reviewed by me
Medical Tests (PFT, Pathology etc): Image Personally Visualized and interpreted and Report Reviewed by me
Labs: Labs Reviewed by me
[2024-03-06 09:05] LABS: Glycohemoglobin (HgbA1c) 5.2 % (4.0-5.6)
--- NOTE | 2024-03-06 11:50 | W.PN.HOSP.TC ---
Today's Communication/Plan
-
follow afternoon BPs for possible DC if stable
Assessment / Plan
Assessment / Plan
Assessment:
NSTEMI (Diagnosis is threat to life)
- s/p [facility] 03/05: Right dominant circulation with a large posterolateral arcade and an acute occlusion of the large first diagonal, status post successful PCI (Medtronic Caden [place] 3.0 x 30 TJ, postdilated with a 3.0 NC balloon) with reduction in
stenosis to 0%, restoring SILVER-3 flow. Moderately elevated filling pressures (LVEDP = 19 mmHg at 120.7 kg) with evidence of significant diastolic dysfunction (A wave to 35 mmHg). Severely tortuous right innominate artery requiring femoral access.
- continue ASA/Brilinta/Statin/BB/ARB/Aldactone; repeat BMP in 1 week
- if BP stable, dc later today to OP cards f/u
Chronic sinus bradycardia
- asymptomatic, monitor
Hx of Essential HTN with urgency
- continue BB/ARB/Aldactone
- previously CCB caused swelling
HLD - statin
Hx of constipation
- laxatives prn
DVT ppx: low risk, ambulation
Code: Full
Anticipated Discharge: Within 24 hours
Subjective/Interval History
-
Date of Service: March 06, 2024
s/p cath and TJ placed yesterday
no chest pain or SOB
BP high and Coreg dose adjusted
Objective Data
-
Labs:
Laboratory Results
03/06/24
03:41
WBC 7.3
Hgb 13.9
Hct 40.8
Plt Count 184
Sodium 138
Potassium 4.1
Chloride 107
Carbon Dioxide 24
BUN 15
Creatinine 0.8
Glucose 100 H
Calcium 9.2
Total Bilirubin 1.1
AST 24
ALT 17
Alkaline Phosphatase 92
Vital Signs:
Vital Signs
Temp Pulse Resp BP Pulse Ox
98.2 F 54 20 150/103 97
03/06/24 11:18 03/06/24 08:00 03/06/24 11:18 03/06/24 11:40 03/06/24 11:18
I&O
03/05/24 03/06/24 03/07/24
06:59 06:59 06:59
Intake Total 1865 / 1865
Output Total 500 / 500
Balance 1365 / 1365
Physical Exam
-
General: No Apparent Distress
HEENT: Normocephalic and Atraumatic
Respiratory: Negative Wheezes
Cardiac: Regular Rhythm and S1/S2
GI: Soft
Genito-urinary: No Costovertebral Tender
Musculoskeletal: No Edema
Neuro: AO x 3
Hematologic / Lymphatic: No Lymphadenopathy
Psych: Calm
Data Reviewed
-
Total Time Spent with Patient (in minutes): 44
Labs: Labs Reviewed by me
[2024-03-06] MEDS: TYLENOL 650 MG PO (12:05)
--- NOTE | 2024-03-06 12:10 | CM ---
Chart reviewed. Patient is independent of ADLS, lives with his i a 3 STH, 2 [place]OUR[place], 0 DME. I called the patients [facility] and the Brilinta is in stock. Plan is for the patient to return home.
--- NOTE | 2024-03-06 14:14 | W.DS.TRANS ---
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
-
Discharge Instructions:
Discharge Diagnosis/Procedures NSTEMI, Angioplasty and stent to Diagonal artery
on 03/05. Hypertension
Diet Low Cholesterol
Driving Restrictions No driving for 24 hours
Other Services Cardiac Rehab
Instructions:
Stand-Alone Forms: DC Instructions- Cath/EP Lab
Changes to Home Medications: Yes
Discharge Medications:
DC Medications w/original date entered in ticketscript
Fiber Laxative 1 dose PO HS Constipation 03/04/24
aspirin 81 mg chewable tablet 81 mg PO DAILY #100 tabs 03/06/24
atorvastatin 40 mg tablet 40 mg PO QPM #30 tabs 03/06/24
carvedilol 12.5 mg tablet 12.5 mg PO BID #60 tabs 03/06/24
spironolactone 25 mg tablet 25 mg PO DAILY #30 tabs 03/06/24
ticagrelor 90 mg tablet (Brilinta) 90 mg PO BID #60 tabs 03/06/24
valsartan 320 mg tablet 320 mg PO HS Blood Pressure #30 tabs 03/06/24
Home Medication Changes
all new med list for CAD with stent placement
Pending Results: No
Total time spent discharging patient (in min): 42
--- NOTE | 2024-03-06 17:25 | PTCARENOTE ---
Pt walking in halls without problem. Pt seen by Kristin and Isaac. Telemetry and IV device removed. Discharge instructions reviewed with pt and his regarding medications and their possible side effects, wound care, activity guidelines,
reporting cares and concerns and follow up appts. Excellent understanding verbalized. Pt escorted out via wheelchair and discharged to home.
== END 2024-03-06 16:40 | disposition home or self-care (01) | DRG 322 ==
LOC: IVU 23:14
PROVIDERS: Clinical Nurse Specialist Family Health; Emergency Medicine; Nurse Practitioner; ADMITTING PHYSICIAN Hospitalist; ATTENDING PHYSICIAN Internal Medicine; EMERGENCY PHYSICIAN Emergency Medicine; FAMILY PHYSICIAN Family Medicine; OTHER PHYSICIAN Internal Medicine Cardiovascular Disease
PROC: B2111ZZ Fluoroscopy of Multiple Coronary Arteries using Low Osmolar Contrast (ICD-10-PCS; 2024-03-05)
PROC: 4A023N7 Measurement of Cardiac Sampling and Pressure, Left Heart, Percutaneous Approach (ICD-10-PCS; 2024-03-05)
PROC: 027034Z Dilation of Coronary Artery, One Artery with Drug-eluting Intraluminal Device, Percutaneous Approach (ICD-10-PCS; 2024-03-05)
DX: I21.4 Non-ST elevation (NSTEMI) myocardial infarction (principal); I16.1 Hypertensive emergency; I11.9 Hypertensive heart disease without heart failure; R60.0 Localized edema; K59.00 Constipation, unspecified; E78.5 Hyperlipidemia, unspecified; Z83.3 Family history of diabetes mellitus; Z82.49 Family history of ischemic heart disease and other diseases of the circulatory system; Z79.82 Long term (current) use of aspirin
CPT/HCPCS: 80053; 80061; 80306; 83036; 84484; 85025; 85347; 85730; 93005; 93306; 93458; 96374; 96375; 99285; C1725; C1760; C1874; C1887; C1894; C9600; Q9967

== ENCOUNTER 2024-04-04 16:59 | Outpatient (RCR) | payer BC, SELFPAY | END 2024-04-04 23:59 | disposition home or self-care (01) | LOC: CRHB 16:59 | PROVIDERS: ATTENDING PHYSICIAN Internal Medicine Cardiovascular Disease; FAMILY PHYSICIAN Family Medicine | DX: I25.10 Atherosclerotic heart disease of native coronary artery without angina pectoris (principal); Z95.5 Presence of coronary angioplasty implant and graft; I25.2 Old myocardial infarction | CPT/HCPCS: 93797; 93798 ==

== ENCOUNTER 2024-05-05 17:00 | Outpatient (RCR) | payer BC, SELFPAY | END 2024-05-05 23:59 | disposition home or self-care (01) | LOC: CRHB 17:00 | PROVIDERS: ATTENDING PHYSICIAN Internal Medicine Cardiovascular Disease; FAMILY PHYSICIAN Family Medicine | DX: I25.10 Atherosclerotic heart disease of native coronary artery without angina pectoris (principal); Z95.5 Presence of coronary angioplasty implant and graft; I25.2 Old myocardial infarction | CPT/HCPCS: 93797; 93798; G0422; G0423 ==

== ENCOUNTER 2024-05-07 12:26 | Outpatient (RCR) | payer BC, SELFPAY | END 2024-05-07 15:54 | disposition other institution (70) | LOC: CRHB 12:26 | PROVIDERS: ATTENDING PHYSICIAN Internal Medicine Cardiovascular Disease | DX: I25.10 Atherosclerotic heart disease of native coronary artery without angina pectoris (principal); Z95.5 Presence of coronary angioplasty implant and graft; I25.2 Old myocardial infarction | CPT/HCPCS: 93797; 93798 ==